=== PATIENT | male | born 1965 | race Caucasian/White ===

== ENCOUNTER 2017-05-16 17:42 | Emergency (ER) | payer OTHER ==
[~2017-05-16] VITALS: Ht 177.8 cm; Wt 83.6 kg
[2017-05-16 19:32] LABS: BASOPHIL COUNT 0.1 K/uL (0-0.1); EOSINOPHIL COUNT 0.2 K/uL (0-0.3); HEMATOCRIT 44.3 % (38.0-50.0); IMMATURE GRANULOCYTE (%) 0.7 % (0.0-0.7); IMMATURE GRANULOCYTE COUNT 0.1 K/uL; INSTRUMENT ABS NEUTROPHIL CT 7.4 K/uL; LYMPHOCYTE COUNT 1.6 K/uL (1.0-2.8); MCH 29.2 PG (29.0-34.0); MCHC 34.1 G/DL (30.0-36.0); MCV 85.7 FL (86-99); MONOCYTE (%) 8.7 % (3-12); MONOCYTE COUNT 0.9 K/uL (0-0.8); NEUTROPHIL COUNT 7.4 K/uL (1.8-6.4); PLATELET COUNT 275 K/uL (156-360); RBC DIS.WIDTH-CV 12.5 % (11.8-14.6); RBC DIS.WIDTH-SD 38.9 % (39-53); RED BLOOD COUNT 5.17 M/uL (4.00-5.50); WHITE BLOOD COUNT 10.2 K/uL (4.1-10.2)
[2017-05-16 19:41] LABS: CHLORIDE 106 mEq/L (99-109); POTASSIUM 4.1 mEq/L (3.7-5.4); SODIUM 141 mEq/L (136-147)
[2017-05-16 19:44] LABS: GLUCOSE 88 mg/dL (70-99)
[2017-05-16 19:45] LABS: ANION GAP 7 MEQ/L (2-14); TOTAL BILIRUBIN 0.5 mg/dL (0.0-1.0)
[2017-05-16 19:47] LABS: ALKALINE PHOSPHATASE 74 IU/L (3-129); GFR ESTIMATE (CALCULATED) > 59 mL/min/
[2017-05-16 19:48] LABS: UREA NITROGEN (BUN) 11 mg/dL (9-23)
[2017-05-16 19:49] LABS: DIRECT BILIRUBIN 0.2 mg/dL (0.0-0.3)
[2017-05-16 19:51] LABS: LIPASE 27 U/L (1.0-51.0)
[2017-05-16 19:53] LABS: TROP-I INTERPRETATION NEGATIVE; TROPONIN-I 0.01 ng/mL (0.0-0.30)
[2017-05-16] MEDS ORDERED: PERCOCET 5/31 TABLET PO (22:06)
[2017-05-16] MEDS ORDERED: MOTRIN600 MG PO (22:06)
[2017-05-16 22:30] VITALS: BP 142/76
== END 2017-05-16 22:31 | disposition home or self-care (01) ==
LOC: EME 17:42
PROVIDERS: Emergency Medicine; Physician Assistant
DX: S22.21XA Fracture of manubrium, initial encounter for closed fracture (principal); V49.40XA Driver injured in collision with unspecified motor vehicles in traffic accident, initial encounter; W22.10XA Striking against or struck by unspecified automobile airbag, initial encounter; E78.5 Hyperlipidemia, unspecified
CPT/HCPCS: 70450; 71020; 71260; 72125; 72129; 72132; 74177; 80048; 80076; 83690; 84484; 85025; 86850; 86900; 86901; 93005; 99281; 99285; J1885; J2405; J3010; J7030